=== PATIENT | female | born 1955 | race Caucasian/White ===

== ENCOUNTER → 2018-04-12 | Outpatient (CLI) | payer OTHER | END | disposition home or self-care (01) | LOC: CFH 13:44 → EDSTATUS 13:45 | PROVIDERS: ATTEND Nurse Practitioner Family | DX: Z12.31 Encounter for screening mammogram for malignant neoplasm of breast (principal); M85.88 Other specified disorders of bone density and structure, other site | CPT/HCPCS: 77063; 77080; 77067 ==